=== PATIENT | female | born 1950 | race Caucasian/White ===

== ENCOUNTER 2024-02-14 13:51 | Outpatient (CLI) | payer MEDICARE, BC | END 2024-02-14 13:52 | disposition home or self-care (01) | LOC: CSHRAD 13:51 | PROVIDERS: ATTEND Internal Medicine Rheumatology | DX: M81.0 Age-related osteoporosis without current pathological fracture (principal); M43.8X4 Other specified deforming dorsopathies, thoracic region | CPT/HCPCS: 72072 ==